=== PATIENT | male | born 1985 | race African-American/Black ===

== ENCOUNTER 2023-10-10 20:55 | Emergency (ER) | payer MEDICAID ==
[~2023-10-10] VITALS: Ht 170.2 cm; Wt 79.0 kg
[~2023-10-10 20:55] MED LIST: DIVAL250 PO; QUET50TA PO
[2023-10-10 20:58] VITALS: TEMP 97.9; O2SAT 98
[2023-10-10 22:11] VITALS: BP 148/98; PULSE 118; RESP 18
== END 2023-10-10 23:30 | disposition home or self-care (01) ==
LOC: ER 20:55
DX: F14.129 Cocaine abuse with intoxication, unspecified (principal)
CPT/HCPCS: 93005; 99283

== ENCOUNTER 2024-04-03 20:22 | Emergency (ER) | payer MEDICAID ==
[~2024-04-03] VITALS: Ht 170.2 cm; Wt 81.0 kg
[2024-04-03 21:02] VITALS: BP 130/95; RESP 16; TEMP 97.4; O2SAT 100
[2024-04-03 21:04] VITALS: PULSE 114; O2SAT 100
[2024-04-03 22:56] LABS: BASOPHILS % 0.4 % (0.0-2.0); DIFFERENTIAL COMMENT 0; EOSINOPHILS % 0.8 % (0.0-5.0); HEMATOCRIT. 44.8 % (42.0-52.0); HEMOGLOBIN. 14.9 g/dL (14.0-18.0); LYMPHOCYTES % 28.1 % (20.0-50.0); MEAN CORPUSCULAR HEMOGLOBIN 32.1 pg (28.0-32.0); MEAN CORPUSCULAR HGB CONC 33.3 g/dL (31.0-37.0); MEAN CORPUSCULAR VOLUME 96.3 fL (80.0-94.0); MONOCYTES % 10.5 % (2.0-8.0); NEUTROPHILS % 60.2 % (40.0-76.0); PLATELET 302 x1000/uL (130-400); RED BLOOD CELL COUNT 4.65 mill/uL (4.7-6.1); WHITE BLOOD COUNT 5.7 x1000/uL (4.5-11.0)
[2024-04-03 22:57] LABS: CARBON DIOXIDE 27 mEq/L (21-32); CHLORIDE 109 mEq/L (98-107); POTASSIUM 3.4 mEq/L (3.5-5.1); SODIUM 144 mEq/L (136-145)
[2024-04-03 22:58] LABS: CALCIUM 9.4 mg/dL (8.7-10.4)
[2024-04-03 23:02] LABS: GLUCOSE 122 mg/dL (70-105)
[2024-04-03 23:03] LABS: TROPONIN I HIGH SENSITIVITY 14 ng/L (3.0-53); UREA NITROGEN BLOOD 15 mg/dL (9-23)
[2024-04-03 23:04] LABS: ALANINE AMINOTRANSFERASE 32 IU/L (10-49); ALBUMIN 4.4 g/dL (3.2-4.8); ASPARTATE AMINOTRANSFERASE 44 IU/L (<34)
[2024-04-03 23:05] LABS: BILIRUBIN DIRECT 0.2 mg/dL (<=3.0); BILIRUBIN TOTAL 0.6 mg/dL (0.1-1.0); ETHANOL BLOOD < 10 mg/dL (<10); PROTEIN TOTAL 7.1 g/dL (6.0-8.3)
[2024-04-03 23:16] LABS: PROTHROMBIN TIME 11.1 sec (9.6-11.0)
[2024-04-04 02:40] LABS: *AMPHETAMINES SCREEN URINE PRESUMPTIVE POSITIVE (NEGATIVE)
[2024-04-04 02:41] LABS: *BARBITURATES SCREEN URINE NEGATIVE (NEGATIVE); *BENZODIAZEPINES SCREEN URINE NEGATIVE (NEGATIVE); *COCAINE SCREEN URINE NEGATIVE (NEGATIVE); CANNABINOID URINE SCREEN NEGATIVE (NEGATIVE); ECSTASY MDMA SCREEN URINE CONF.TEST INDICATED (NEGATIVE); METHADONE URINE SCREEN NEGATIVE (NEGATIVE); OPIATES URINE SCREEN NEGATIVE (NEGATIVE); PHENCYCLIDINE URINE SCREEN NEGATIVE (NEGATIVE)
[2024-04-04 02:54] LABS: CLARITY URINE TURBID (CLEAR); COLOR URINE DARK YELLOW (YELLOW); PH URINE 5.5 (4.5-8.0); PROTEIN URINE NEGATIVE (NEGATIVE); SPECIFIC GRAVITY URINE 1.034 (1.005-1.030)
[2024-04-04 02:55] LABS: GLUCOSE URINE NEGATIVE (NEGATIVE); KETONES URINE 1+ (NEGATIVE)
[2024-04-04 02:59] LABS: LEUKOCYTE ESTERASE URINE NEGATIVE (NEGATIVE); NITRITE URINE NEGATIVE (NEGATIVE); OCCULT BLOOD URINE NEGATIVE (NEGATIVE)
[2024-04-04] MEDS ORDERED: MECLIZINE 25MG TABLET PO ONE (03:00)
[2024-04-04] MEDS: ONDANSETRON 4MG ODT PO ONE (03:00)
[2024-04-04] MEDS: MECLIZINE 25MG TABLET PO NR (03:45)
[2024-04-04] MEDS ORDERED: MECL-299 MT (04:13)
[2024-04-04] MEDS ORDERED: ONDA-239 PO (04:13)
[2024-04-04 05:44] LABS: RBC URINE NONE SEEN /hpf (0-2); WBC URINE NONE SEEN /hpf (0-2)
[2024-04-04 05:45] LABS: AMORPHOUS SEDIMENT URINE 2+ /lpf; BACTERIA URINE NONE SEEN; SQUAMOUS EPITHELIAL CELL URINE NONE SEEN /lpf (RARE/1+)
== END 2024-04-04 04:30 | disposition home or self-care (01) ==
LOC: ER 20:22
DX: R42 Dizziness and giddiness (principal); F10.90 Alcohol use, unspecified, uncomplicated; F12.90 Cannabis use, unspecified, uncomplicated; Y90.9 Presence of alcohol in blood, level not specified
CPT/HCPCS: 80076; 80048; 80320; 83690; 85025; 85610; 84484; 36415; 71045; 93005; 99285; 80305; 81003; J8597; Q0162; G0480

== ENCOUNTER 2024-04-12 17:40 | Emergency (ER) | payer MEDICAID ==
[~2024-04-12] VITALS: Ht 177.8 cm; Wt 80.0 kg
[~2024-04-12 17:40] MED LIST changes: +MECL-299 MT; +ONDA-239 PO
[2024-04-12 17:46] VITALS: BP 119/89; PULSE 116; RESP 18; TEMP 97.5; O2SAT 100
[2024-04-12] MEDS ORDERED: SODIUM CHLORIDE 0.9% 1,000 ML IV ONE (18:30)
== END 2024-04-12 19:50 | disposition home or self-care (01) ==
LOC: ER 17:40
DX: F15.90 Other stimulant use, unspecified, uncomplicated (principal); F10.90 Alcohol use, unspecified, uncomplicated; F14.90 Cocaine use, unspecified, uncomplicated; Y90.9 Presence of alcohol in blood, level not specified
CPT/HCPCS: 99283; J7030

== ENCOUNTER 2024-05-26 18:30 | Emergency (ER) | payer MEDICAID ==
[~2024-05-26] VITALS: Ht 172.7 cm; Wt 72.6 kg
[2024-05-26 18:32] VITALS: BP 122/86; PULSE 83; RESP 16; TEMP 36.7; O2SAT 98
[2024-05-26] MEDS: ACETAMINOPHEN 325MG TABLET PO ONE (21:51)
[2024-05-26] MEDS ORDERED: BO1 TP (22:12)
[2024-05-26] MEDS ORDERED: KETOROLAC 15MG/ML VIAL IM ONE (23:15)
== END 2024-05-27 00:30 | disposition home or self-care (01) ==
LOC: ER 18:30
DX: L60.0 Ingrowing nail (principal); F10.90 Alcohol use, unspecified, uncomplicated; Z79.899 Other long term (current) drug therapy; Y90.9 Presence of alcohol in blood, level not specified
CPT/HCPCS: 73630; 99283; J1885